=== PATIENT | female | born 1965 | race Caucasian/White ===

== ENCOUNTER 2021-05-03 09:05 | Emergency (ER) | payer SELFPAY ==
[2021-05-03 10:09] LABS: #Basophils 0.1 thou/uL (0.0-0.2); #Monocytes 0.8 thou/uL (0.11-0.59); #Neutrophils 5.5 thou/uL (1.40-6.50); %Basophils 0.9 % (0.0-1.0); %Eosinophils 0.5 % (0.0-10.0); %Lymphocytes 32.1 % (21.0-51.0); %Monocytes 8.2 % (0.0-10.0); %Neutrophils 58.3 % (42.0-75.0); Hemoglobin 12.6 g/dL (12.0-16.0); Mean Corpuscular HGB CONC 33.2 g/dL (32.0-36.0); Mean Corpuscular Hemoglobin 30.9 pg (27.0-31.0); Mean Platelet Volume 7.3 fL (7.4-10.4); Platelet Count 301 thou/uL (130-400); RBC Distribution Width 11.2 % (11.5-14.5); White Blood Cell (WBC) Count 9.5 thou/uL (4.8-10.8)
[2021-05-03 10:26] LABS: ALT (SGPT) 50 U/L (8-55); AST (SGOT) 46 U/L (5-34); Albumin 3.9 g/dL (3.5-5.0); Alkaline Phosphatase 71 U/L (40-110); Anion Gap 13 mmol/L (10-20); BUN (Urea Nitrogen) 13 mg/dL (9.8-20.1); Bilirubin, Total 0.4 mg/dL (0.2-1.2); CK (CPK) 57 U/L (29-168); Calc. Creatinine Clearance 0 mL/min (70-130); Calcium 8.6 mg/dL (7.8-10.44); Carbon Dioxide 22 mmol/L (22-29); Chloride 106 mmol/L (98-107); Globulin 3.7 g/dL (2.4-3.5); Glucose 116 mg/dL (70-105); Lipase 39 U/L (8-78); Potassium 3.4 mmol/L (3.5-5.1); Protein, Total 7.6 g/dL (6.0-8.3); Sodium 138 mmol/L (136-145)
[2021-05-03] MEDS ORDERED: Nitroglycerin 2% Ointment 1 INCH/1 GM Packet ONE (10:32)
[2021-05-03] MEDS ORDERED: Aspirin Chewable 81 MG TAB ONE (10:33)
[2021-05-03] MEDS ORDERED: Lidocaine Viscous Sol 2% 15 ml UD Cup ONE (10:33)
[2021-05-03] MEDS ORDERED: Mag-Al Plus 1200 MG/1200 MG/120 MG/30 ML UDCUP ONE (10:33)
[2021-05-03 11:20] LABS: Troponin I Less than 0.010 ng/mL (< 0.028)
== END 2021-05-03 11:45 | disposition home or self-care (01) ==
LOC: MADERS 09:05
DX: R07.89 Other chest pain (principal); K74.60 Unspecified cirrhosis of liver; I10 Essential (primary) hypertension; F17.210 Nicotine dependence, cigarettes, uncomplicated; Z79.899 Other long term (current) drug therapy
CPT/HCPCS: 36415; 71045; 80053; 82550; 83690; 84484; 85025; 93005